=== PATIENT | male | born 1965 | race Caucasian/White ===

== ENCOUNTER 2016-08-08 15:21 | Outpatient (CLI) | payer OTHER | END 2016-08-08 23:00 | LOC: LAB SRH 15:21 | DX: Z79.01 Long term (current) use of anticoagulants (principal); Z51.81 Encounter for therapeutic drug level monitoring | CPT/HCPCS: 90074; 94060 ==

== ENCOUNTER 2016-08-12 12:22 | Outpatient (CLI) | payer OTHER | END 2016-08-12 23:00 | LOC: LAB SRH 12:22 | DX: Z51.81 Encounter for therapeutic drug level monitoring (principal); Z79.01 Long term (current) use of anticoagulants | CPT/HCPCS: 90074; 94060 ==

== ENCOUNTER 2016-08-17 12:12 | Outpatient (CLI) | payer OTHER | END 2016-08-17 23:00 | LOC: LAB SRH 12:12 | DX: Z79.01 Long term (current) use of anticoagulants (principal); Z51.81 Encounter for therapeutic drug level monitoring | CPT/HCPCS: 90074; 94060 ==

== ENCOUNTER 2016-08-18 11:23 | Outpatient (CLI) | payer OTHER | END 2016-08-18 23:00 | LOC: LAB SRH 11:23 | DX: Z51.81 Encounter for therapeutic drug level monitoring (principal); Z79.01 Long term (current) use of anticoagulants | CPT/HCPCS: 90074; 94060 ==

== ENCOUNTER 2016-08-20 11:39 | Outpatient (CLI) | payer OTHER | END 2016-08-20 23:00 | LOC: LAB SRH 11:39 | DX: Z51.81 Encounter for therapeutic drug level monitoring (principal); Z79.01 Long term (current) use of anticoagulants | CPT/HCPCS: 94060 ==

== ENCOUNTER 2016-08-30 10:35 | Outpatient (CLI) | payer OTHER | END 2016-08-30 23:00 | LOC: LAB SRH 10:35 | DX: Z51.81 Encounter for therapeutic drug level monitoring (principal); Z79.01 Long term (current) use of anticoagulants | CPT/HCPCS: 90074; 94060 ==

== ENCOUNTER 2016-09-06 15:47 | Outpatient (CLI) | payer OTHER | END 2016-09-06 23:00 | LOC: LAB SRH 15:47 | DX: Z51.81 Encounter for therapeutic drug level monitoring (principal); Z79.01 Long term (current) use of anticoagulants | CPT/HCPCS: 90074; 94060 ==

== ENCOUNTER 2016-09-15 12:45 | Outpatient (CLI) | payer OTHER | END 2016-09-15 23:00 | LOC: LAB SRH 12:45 | DX: Z51.81 Encounter for therapeutic drug level monitoring (principal); Z79.01 Long term (current) use of anticoagulants | CPT/HCPCS: 90074; 94060 ==

== ENCOUNTER 2016-09-30 13:33 | Outpatient (CLI) | payer OTHER | END 2016-09-30 23:00 | disposition home or self-care (01) | LOC: LAB SRH 13:33 | DX: Z51.81 Encounter for therapeutic drug level monitoring (principal); Z79.01 Long term (current) use of anticoagulants | CPT/HCPCS: 90074; 94060 ==

== ENCOUNTER 2016-10-07 11:14 | Outpatient (CLI) | payer OTHER | END 2016-10-07 23:00 | LOC: LAB SRH 11:14 | DX: Z79.01 Long term (current) use of anticoagulants (principal) | CPT/HCPCS: 90074; 94060 ==

== ENCOUNTER → 2016-10-14 | Outpatient (CLI) | payer OTHER | LOC: LAB SRH 09:03 | DX: Z51.81 Encounter for therapeutic drug level monitoring (principal); Z79.01 Long term (current) use of anticoagulants | CPT/HCPCS: 90074; 94060 ==

== ENCOUNTER 2016-10-21 13:31 | Outpatient (CLI) | payer OTHER | END 2016-10-21 23:00 | LOC: LAB SRH 13:31 | DX: Z51.81 Encounter for therapeutic drug level monitoring (principal); Z79.01 Long term (current) use of anticoagulants | CPT/HCPCS: 90074; 94060 ==

== ENCOUNTER 2016-10-22 10:11 | Outpatient (CLI) | payer OTHER | END 2016-10-22 23:00 | disposition home or self-care (01) | LOC: LAB SRH 10:11 | DX: Z51.81 Encounter for therapeutic drug level monitoring (principal); Z79.01 Long term (current) use of anticoagulants | CPT/HCPCS: 90074; 94060 ==

== ENCOUNTER 2016-10-28 13:18 | Outpatient (CLI) | payer OTHER | END 2016-10-28 23:00 | LOC: LAB SRH 13:18 | DX: Z51.81 Encounter for therapeutic drug level monitoring (principal); Z79.01 Long term (current) use of anticoagulants | CPT/HCPCS: 90074; 94060 ==

== ENCOUNTER 2016-11-24 09:14 | Outpatient (CLI) | payer OTHER | END 2016-11-24 23:00 | LOC: LAB SRH 09:14 | DX: Z79.01 Long term (current) use of anticoagulants (principal) | CPT/HCPCS: 90074; 94060 ==

== ENCOUNTER 2016-12-07 13:44 | Outpatient (CLI) | payer OTHER | END 2016-12-07 23:00 | disposition home or self-care (01) | LOC: LAB SRH 13:44 | DX: Z79.01 Long term (current) use of anticoagulants (principal); Z51.81 Encounter for therapeutic drug level monitoring | CPT/HCPCS: 90074; 94060 ==

== ENCOUNTER 2016-12-22 07:11 | Outpatient (CLI) | payer OTHER | END 2016-12-22 23:00 | LOC: LAB SRH 07:11 | DX: Z79.01 Long term (current) use of anticoagulants (principal) | CPT/HCPCS: 90074; 94060 ==

== ENCOUNTER 2017-02-10 11:17 | Outpatient (CLI) | payer OTHER | END 2017-02-10 23:00 | disposition home or self-care (01) | LOC: LAB SRH 11:17 | DX: Z94.1 Heart transplant status (principal) | CPT/HCPCS: 90047; 90074; 90291 ==